=== PATIENT | female | born 1955 | race Asian ===

== ENCOUNTER 2024-12-22 12:54 | Emergency (ER) | payer OTHER ==
[2024-12-22 13:01] VITALS: BMI 33.2
[2024-12-22] MEDS ORDERED: ONDANSETRON 4 MG/2 ML VIAL ONE (14:24)
[2024-12-22] MEDS ORDERED: FAMOTIDINE 20 MG/50 ML IVPB 20 MG/50 ML MG IVPB ONE (14:24)
[2024-12-22] MEDS ORDERED: ACETAMINOPHEN INJECTION 100 ML ONE (14:24)
[2024-12-22] MEDS: ONDANSETRON 4 MG/2 ML VIAL IVPUSH ONE (14:49)
[2024-12-22] MEDS: FAMOTIDINE 20 MG/50 ML IVPB 20 MG/50 ML MG IVPB ONE (14:49)
[2024-12-22] MEDS: ACETAMINOPHEN 1000 MG/100 ML BAG IVPB ONE (14:49)
[2024-12-22] MEDS: SODIUM CHLORIDE 0.9% 500 ML INFUS.BAG IV ONE (14:49)
[2024-12-22 14:52] LABS: HEMATOCRIT 39.6 % (34.1-44.9); MCHC 32.8 g/dl (32.2-35.5); MEAN CELL VOLUME 80.2 fl (79.4-94.8); MEAN PLT VOLUME 9.4 fl (9.4-12.3); PLATELET COUNT 282 x10^3/uL (182-369); RDW 14.6 % (12.4-16.4)
[2024-12-22 15:01] LABS: INR 1.23 (0.83-1.09); PROTHROMBIN TIME (PATIENT) 13.5 SEC (9.7-13.0)
[2024-12-22] MEDS ORDERED: morphine SULFATE 4 MG/ML VIAL ONE ×2 (15:02→18:26)
[2024-12-22 15:03] LABS: ACTIVATED PTT 32.3 SECONDS (25.2-36.5)
[2024-12-22] MEDS: morphine CARPU-JECT 4 MG/1 ML DISP.SYRIN IVPUSH ONE ×2 (15:09→18:24)
[2024-12-22 15:15] LABS: POTASSIUM 3.4 mmol/L (3.5-5.1)
[2024-12-22 15:18] LABS: ALBUMIN 3.6 g/dl (3.4-5.0); BLOOD UREA NITROGEN 16.4 mg/dL (7-18); CALCIUM 9.9 mg/dL (8.5-10.1)
[2024-12-22 15:21] LABS: CREATININE 0.9 mg/dL (0.55-1.3)
[2024-12-22 15:22] LABS: BILIRUBIN,TOTAL 0.8 mg/dL (0.2-1)
[2024-12-22 15:23] LABS: TOT PROT 8.4 g/dl (6.4-8.2)
[2024-12-22] MEDS ORDERED: POTASSIUM CHLORIDE ORAL LIQUID 20 MEQ/15 ML ONE (16:07)
[2024-12-22] MEDS ORDERED: POTASSIUM CHLORIDE TABS 20 MEQ TABLET.ER (FP) PO ONE (16:09)
[2024-12-22] MEDS: POTASSIUM CHLORIDE TABS 20 MEQ TABLET.ER (FP) PO ONE (16:45)
[2024-12-22 17:03] VITALS: BP 150/70; PULSE 60; RESP 18; TEMP 97.8
== END 2024-12-22 18:36 | disposition home or self-care (01) ==
LOC: JER 12:54
PROC: 3E033GC Introduction of Other Therapeutic Substance into Peripheral Vein, Percutaneous Approach (ICD-10-PCS; principal; 2024-12-22)
PROC: 3E033NZ Introduction of Analgesics, Hypnotics, Sedatives into Peripheral Vein, Percutaneous Approach (ICD-10-PCS; 2024-12-22)
PROC: 3E033NZ Introduction of Analgesics, Hypnotics, Sedatives into Peripheral Vein, Percutaneous Approach (ICD-10-PCS; 2024-12-22)
PROC: 3E033NZ Introduction of Analgesics, Hypnotics, Sedatives into Peripheral Vein, Percutaneous Approach (ICD-10-PCS; 2024-12-22)
PROC: 3E033GC Introduction of Other Therapeutic Substance into Peripheral Vein, Percutaneous Approach (ICD-10-PCS; 2024-12-22)
DX: K80.20 Calculus of gallbladder without cholecystitis without obstruction (principal); R10.13 Epigastric pain; R11.2 Nausea with vomiting, unspecified; R10.11 Right upper quadrant pain
CPT/HCPCS: 36415; 74177-TC; 76705-TC; 80053; 83690; 84484; 85027; 85610; 85730; 93005; 93010; 99285-25; J0131; Q9967